=== PATIENT | male | born 1935 | race Caucasian/White ===

== ENCOUNTER 2016-06-25 15:22 | Inpatient (IN) | payer MEDICARE, OTHER ==
[~2016-06-25 15:22] MED LIST: ALBUTEROL0.83 MG/ML INH; ALBUTEROL2.5 MG/3 M INH; AMLODIPINE BESY10 MG PO; CARDIZEM CD240 MG PO; CLARITIN10 M8 PO; CLARITIN10 MG/TAB PO; COUMADIN5 M2 PO; CULTURELLE1 EAC1 PO; FELODIPINE ER10 MG; FISH OIL 1,0001 CA PO; FISH OIL 1,0001 CA1 PO; FISH OIL 11000 MG/CA PO; FLOMAX0.4 M1 PO; FLOMAX0.4 MG PO; FLONASE ALLERG9.9 ML; FLONASE16 GM NS; FLUNISOLIDE25 M3 NS; FLUNISOLIDE25 ML NS; HYDROCHLOROTHIA25 MG; IBUPROFEN200 MG; IBUPROFEN800 MG PO; K-DUR20 ME1 PO; LASIX40 M1 PO; LASIX40 MG PO; LEVAQUIN750 M1 PO; METOPROLOL SUCC50 MG PO; NASAL DECONGEST10 MG PO; NEURONTIN300 M1 PO; NORCO 5/325 TAB1 TAB PO; NORVASC5 MG; OMEPRAZOLE20 M3 PO; OXYBUTYNIN CHLOR5 M2 PO; POTASSIUM CHLO10 MEQ PO; PRILOSEC20 MG; RYTHMOL150 MG PO; SPIRIVA18 MC1 INH; SYMBICORT 160-1 PUFF INH; TIAZAC PO; TOPROL XL100 MG PO; TOPROL XL200 M1 PO; TOPROL XL50 MG PO; TYLENOL325 M2 PO; Toprol Xl PO; ULTRAM50 M1 PO; ULTRAM50 MG PO; XARELTO20 M1 PO; ZITHROMAX500 M1 PO; ZOCOR40 MG; ZOCOR80 MG
[2016-06-25 15:39] LABS: BASO % 0.1 % (0-2); EOS % 0.1 % (0-7); HCT-HEMATOCRIT 48.6 % (36.0-53.5); IMMATURE GRANULOCYTES ABSOLUTE 0.02 tho/cmm (0-0.03); IMMATURE GRANULOCYTES PERCENT 0.2 % (0-0.3); LYMPH % 11.3 % (20-45); LYMPH ABSOLUTE COUNT 1.3 tho/cmm (0.8-4.5); MCH (MEAN CORPUSCULAR HGB) 31.1 pg (28.0-32.0); MCV (MEAN CELL VOLUME) 88.8 fl (82.0-96.0); MONO % 5.9 % (0-12); MONOCYTE ABSOLUTE COUNT 0.7 tho/cmm (0.0-1.2); NEUTROPHIL ABSOLUTE COUNT 9.6 tho/cmm (1.6-8.0); NEUTROPHIL-AUTOMATED 9.6 tho/cmm (1.6-8.0); NEUTROPHILS % 82.4 % (40-80); PLATELET COUNT 217 tho/cmm (150-450); RED BLOOD COUNT 5.47 mil/cmm (4.40-5.70); WHITE BLOOD COUNT 11.6 tho/cmm (4.0-10.0)
[2016-06-25 16:20] LABS: ALB/GLOB RATIO 1.2 (0.8-2.0); ALBUMIN 3.9 g/dl (3.5-5.0); ALKALINE PHOSPHATASE 49 U/L (33-138); ALT/SGPT 17 U/L (12-78); ANION GAP 12 mmol/L (0-20); AST/SGOT 14 U/L (10-40); BILIRUBIN,TOTAL 1.5 mg/dl (0.0-1.5); BLOOD UREA NITROGEN 22 mg/dl (6-24); CARBON DIOXIDE-VENOUS 31 mmol/L (22-32); CHLORIDE 100 mmol/l (96-110); CREATININE 1.29 mg/dl (0.60-1.30); GLUCOSE 138 mg/dL (70-110); LIPASE 111 U/L (73-393); POTASSIUM 3.8 mmol/L (3.7-5.1); SODIUM 139 mmol/L (135-145); eGFR VALUE FOR BLACK 60 mL/Min
[2016-06-26 04:46] LABS: BASO % 0.1 % (0-2); EOS % 0.1 % (0-7); HCT-HEMATOCRIT 44.7 % (36.0-53.5); HGB-HEMOGLOBIN 15.2 gm/dl (13.5-17.0); IMMATURE GRANULOCYTES ABSOLUTE 0.02 tho/cmm (0-0.03); IMMATURE GRANULOCYTES PERCENT 0.2 % (0-0.3); LYMPH % 9.8 % (20-45); MCH (MEAN CORPUSCULAR HGB) 30.7 pg (28.0-32.0); MCV (MEAN CELL VOLUME) 90.3 fl (82.0-96.0); MEAN PLATELET VOLUME 12.1 cmc (9.4-12.4); MONO % 7.2 % (0-12); MONOCYTE ABSOLUTE COUNT 0.8 tho/cmm (0.0-1.2); NEUTROPHIL ABSOLUTE COUNT 8.8 tho/cmm (1.6-8.0); NEUTROPHIL-AUTOMATED 8.8 tho/cmm (1.6-8.0); NEUTROPHILS % 82.6 % (40-80); PLATELET COUNT 176 tho/cmm (150-450); RED BLOOD COUNT 4.95 mil/cmm (4.40-5.70); WHITE BLOOD COUNT 10.6 tho/cmm (4.0-10.0)
[2016-06-26 06:08] LABS: CHLORIDE 103 mmol/l (96-110); SODIUM 140 mmol/L (135-145)
[2016-06-26 06:13] LABS: ANION GAP 15 mmol/L (0-20); BLOOD UREA NITROGEN 21 mg/dl (6-24); CALCIUM 8.1 mg/dl (8.5-10.5); CARBON DIOXIDE-VENOUS 26 mmol/L (22-32); GLUCOSE 115 mg/dL (70-110); MAGNESIUM 1.9 mg/dl (1.3-2.6); eGFR VALUE FOR BLACK 65 mL/Min
[2016-06-27 06:19] LABS: ANION GAP 12 mmol/L (0-20); BLOOD UREA NITROGEN 22 mg/dl (6-24); CALCIUM 7.9 mg/dl (8.5-10.5); CARBON DIOXIDE-VENOUS 27 mmol/L (22-32); CHLORIDE 108 mmol/l (96-110); CREATININE 1.18 mg/dl (0.60-1.30); GLUCOSE 77 mg/dL (70-110); MAGNESIUM 2.1 mg/dl (1.3-2.6); POTASSIUM 3.7 mmol/L (3.7-5.1); SODIUM 143 mmol/L (135-145); eGFR VALUE FOR BLACK 67 mL/Min
[2016-06-28 05:52] LABS: HGB-HEMOGLOBIN 14.7 gm/dl (13.5-17.0); PLATELET COUNT 204 tho/cmm (150-450)
[2016-06-28 05:59] LABS: ANION GAP 15 mmol/L (0-20); BLOOD UREA NITROGEN 23 mg/dl (6-24); CALCIUM 7.6 mg/dl (8.5-10.5); CARBON DIOXIDE-VENOUS 23 mmol/L (22-32); CHLORIDE 109 mmol/l (96-110); CREATININE 1.16 mg/dl (0.60-1.30); GLUCOSE 97 mg/dL (70-110); MAGNESIUM 2.1 mg/dl (1.3-2.6); POTASSIUM 3.6 mmol/L (3.7-5.1); SODIUM 143 mmol/L (135-145); eGFR VALUE FOR BLACK 68 mL/Min
--- NOTE | 2016-06-28 15:54 | NUR ---
VN ROUNDING-I TRIED TO ROUND ON PATIENT THIS MORNING AT 0720 PRIOR TO PATIENT GOING TO SURGERY BUT HE WAS NOT ABLE TO SEE OR HEAR ME ON THE MONITOR. I JUST CHECKED AND HE HAS RECENTLY ARRIVED BACK FROM SURGERY SO WILL DEFER ROUNDING TILL LATER
[2016-06-29] MEDS ORDERED: MIRALAX17 G2 PO (15:08)
== END 2016-06-29 15:50 | DRG 356 ==
LOC: EDMED 15:22 → EMR2 17:40 → 5WD 19:56 → ORW 06-28 10:09 → PACU 06-28 11:41 → 5WD 06-28 12:43
PROVIDERS: Emergency Medicine; Internal Medicine; ADMIT Family Medicine
PROC: 0WJG4ZZ Inspection of Peritoneal Cavity, Percutaneous Endoscopic Approach (ICD-10-PCS; principal; 2016-06-28)
DX: K56.69 Other intestinal obstruction (principal); I46.9 Cardiac arrest, cause unspecified; K92.0 Hematemesis; I48.2 Chronic atrial fibrillation; J44.9 Chronic obstructive pulmonary disease, unspecified; R55 Syncope and collapse; I10 Essential (primary) hypertension; E78.5 Hyperlipidemia, unspecified; G47.33 Obstructive sleep apnea (adult) (pediatric); I25.10 Atherosclerotic heart disease of native coronary artery without angina pectoris; K21.9 Gastro-esophageal reflux disease without esophagitis; M54.9 Dorsalgia, unspecified; I73.9 Peripheral vascular disease, unspecified; N40.0 Benign prostatic hyperplasia without lower urinary tract symptoms; K59.00 Constipation, unspecified; Z87.442 Personal history of urinary calculi; Z79.01 Long term (current) use of anticoagulants; Z87.891 Personal history of nicotine dependence; Z88.8 Allergy status to other drugs, medicaments and biological substances; Z90.49 Acquired absence of other specified parts of digestive tract; Z88.0 Allergy status to penicillin
CPT/HCPCS: C9113; J1650; J1956; J2405; J3010; J7030; Q9967